=== PATIENT | male | born 1950 | race Caucasian/White ===

== ENCOUNTER 2016-10-21 12:06 | Inpatient (IN) | payer OTHER, MEDICAID ==
[~2016-10-21] VITALS: Ht 193 cm; Wt 97.1 kg
[~2016-10-21 12:06] MED LIST: ASPIR 8181 MG PO; CLINDAMYCIN HC300 MG PO; DUONEB3 ML NEB; LAC PO; LEVAQUIN750 MG PO; MUCINEX600 MG PO; PROVENTIL0.09 MG/A1 INH; SYMBICORT1 AE3 INH; TETRACYCLINE250 MG PO
[2016-10-21 13:15] LABS: BASOPHIL % 0.6 % (0-2); PLATELET COUNT 303 x10^3mcL (130-400)
[2016-10-21 13:22] LABS: RED CELL DISTRIBUTION WIDTH 16.1 % (11.5-14.5)
[2016-10-21 13:24] LABS: CALCIUM 8.1 mg/dL (8.5-10.1); CARBON DIOXIDE 29.6 mmol/L (21-32); CHLORIDE SERUM 107 mmol/L (98-107); GFR1 > 60 mL/min; GLUCOSE SERUM 85 mg/dL (74-106); POTASSIUM SERUM 3.8 mmol/L (3.5-5.1); SODIUM SERUM 144 mmol/L (136-145)
[2016-10-21] MEDS ORDERED: ZITHROMAX Z-PA250 MG PO (13:29)
[2016-10-21] MEDS ORDERED: POTASSIUM CHLO10 MEQ (13:30)
[2016-10-21] MEDS ORDERED: NITROSTAT0.4 MG SL (13:30)
[2016-10-21] MEDS ORDERED: L-LYSINE (13:30)
[2016-10-21] MEDS ORDERED: CHOLESTEROL (13:30)
[2016-10-21 13:38] LABS: ALBUMIN 3.4 g/dL (3.4-5.0); ALKALINE PHOSPHATASE 102 U/L (46-116); ALT/SGPT 36 U/L (16-63); AST/SGOT 27 U/L (15-37); BILIRUBIN TOTAL 0.61 mg/dL (0.20-1.00)
[2016-10-21 13:40] LABS: CK-MB 3.3 ng/mL (0-3.6)
[2016-10-21 14:12] LABS: UA SPECIFIC GRAVITY 1.025 (1.005-1.035); microscopic required? YES; urine erythrocyte NEGATIVE (NEGATIVE)
[2016-10-21 16:06] VITALS: BP 189/84
[2016-10-21 16:11] LABS: MAGNESIUM 1.8 mg/dL (1.8-2.4); PHOSPHOROUS 3.5 mg/dL (2.5-4.9)
[2016-10-21 16:20] LABS: FREE THYROXINE INDEX 2.5 ug/dL (1.4-4.5); T4(THYROXINE) 8.8 ug/dL (4.7-13.3)
[2016-10-21 16:30] LABS: CHOLESTEROL/HDL RATIO 1.9
[2016-10-21 16:49] VITALS: Ht 193 cm; Wt 97.1 kg
[2016-10-21 17:06] VITALS: BP 189/84
[2016-10-21 18:15] VITALS: BP 163/77
[2016-10-21 18:40] LABS: T3 TOTAL 1.12 ng/mL
[2016-10-21] MEDS ORDERED: HYDROCHLOROTHIA25 MG PO (20:22)
[2016-10-21 21:49] VITALS: BP 178/63
[2016-10-22 06:27] VITALS: BP 137/70
[2016-10-22 09:21] VITALS: BP 150/70
[2016-10-22 14:41] VITALS: BP 111/43
[2016-10-22 16:29] VITALS: BP 138/67
[2016-10-22 16:35] LABS: BASOPHIL % 0.5 % (0-2); PLATELET COUNT 261 x10^3mcL (130-400)
[2016-10-22 16:36] LABS: RED CELL DISTRIBUTION WIDTH 16.1 % (11.5-14.5)
[2016-10-22 16:46] LABS: CALCIUM 7.9 mg/dL (8.5-10.1); CARBON DIOXIDE 28.9 mmol/L (21-32); CHLORIDE SERUM 106 mmol/L (98-107); CREATININE SERUM 1.1 mg/dL (0.7-1.3); GFR1 > 60 mL/min; GLUCOSE SERUM 113 mg/dL (74-106); POTASSIUM SERUM 4.3 mmol/L (3.5-5.1); SODIUM SERUM 143 mmol/L (136-145)
[2016-10-22 21:03] VITALS: BP 140/83
[2016-10-23 05:26] VITALS: BP 117/64
[2016-10-23 06:40] LABS: BASOPHIL % 0.6 % (0-2); PLATELET COUNT 265 x10^3mcL (130-400)
[2016-10-23 06:44] LABS: RED CELL DISTRIBUTION WIDTH 16.2 % (11.5-14.5)
[2016-10-23 07:01] LABS: CALCIUM 7.9 mg/dL (8.5-10.1); CARBON DIOXIDE 31.7 mmol/L (21-32); CHLORIDE SERUM 106 mmol/L (98-107); CREATININE SERUM 1.1 mg/dL (0.7-1.3); GFR1 > 60 mL/min; GLUCOSE SERUM 85 mg/dL (74-106); MAGNESIUM 1.8 mg/dL (1.8-2.4); POTASSIUM SERUM 4.4 mmol/L (3.5-5.1); SODIUM SERUM 145 mmol/L (136-145)
[2016-10-23 08:57] LABS: AMPHETAMINE QUAL UR NONE DETECTED (NEG <=1000)
[2016-10-23 09:14] VITALS: BP 117/73
[2016-10-23] MEDS ORDERED: TEN25 PO (14:47)
[2016-10-23] MEDS ORDERED: ZES10 PO (14:48)
[2016-10-23] MEDS ORDERED: NEU300 PO (14:52)
[2016-10-23] MEDS ORDERED: LAC PO (14:53)
[2016-10-23] MEDS ORDERED: LEVOFLOXACIN500 M1 PO (14:56)
[2016-10-23 15:43] VITALS: BP 117/73
[2016-10-23 17:35] VITALS: BP 140/71
== END 2016-10-23 18:30 | disposition home or self-care (01) | DRG 602 ==
LOC: ED 12:06 → DU 14:54 → MU 14:54 → DU 14:54 → MU 10-23 10:02
PROVIDERS: Emergency Medicine; Student in an Organized Health Care Education/Training Program; ADMIT Family Medicine
DX: L03.116 Cellulitis of left lower limb (principal); N17.0 Acute kidney failure with tubular necrosis; I42.9 Cardiomyopathy, unspecified; I87.8 Other specified disorders of veins; I16.0 Hypertensive urgency; R07.9 Chest pain, unspecified; I25.10 Atherosclerotic heart disease of native coronary artery without angina pectoris; J44.9 Chronic obstructive pulmonary disease, unspecified; D64.9 Anemia, unspecified; E78.5 Hyperlipidemia, unspecified; F17.290 Nicotine dependence, other tobacco product, uncomplicated; Z68.26 Body mass index [BMI] 26.0-26.9, adult; Z95.5 Presence of coronary angioplasty implant and graft; Z79.82 Long term (current) use of aspirin
CPT/HCPCS: 83880; 84439; J1644; J1956; J3490; J7030; J7050; J7620; J7633; Q0092

== ENCOUNTER 2017-10-25 13:22 | Inpatient (IN) | payer OTHER, MEDICAID ==
[~2017-10-25] VITALS: Ht 193 cm; Wt 90.4 kg
[~2017-10-25 13:22] MED LIST changes: +CHOLESTEROL; +HYDROCHLOROTHIA25 MG PO; +L-LYSINE; +LEVOFLOXACIN500 M1 PO; +NEU300 PO; +NITROSTAT0.4 MG SL; +POTASSIUM CHLO10 MEQ; +TEN25 PO; +ZES10 PO; +ZITHROMAX Z-PA250 MG PO
[2017-10-25 13:24] VITALS: Ht 193 cm; Wt 90.4 kg
[2017-10-25 14:23] LABS: BASOPHIL % 0.3 % (0-2)
[2017-10-25 14:26] LABS: PLATELET COUNT 478 x10^3mcL (130-400)
[2017-10-25 14:34] LABS: CALCIUM 9.4 mg/dL (8.5-10.1); CARBON DIOXIDE 32.1 mmol/L (21-32); CREATININE SERUM 1.6 mg/dL (0.7-1.3); POTASSIUM SERUM 3.6 mmol/L (3.5-5.1)
[2017-10-25 14:39] LABS: BILIRUBIN TOTAL 0.55 mg/dL (0.20-1.00); TOTAL PROTEIN, SERUM 7.8 g/dL (6.4-8.2)
[2017-10-25 14:40] LABS: ALBUMIN 3.2 g/dL (3.4-5.0)
[2017-10-25 16:00] VITALS: BP 108/61
[2017-10-25 17:00] VITALS: BP 108/61
[2017-10-25 21:09] VITALS: BP 107/65
[2017-10-26 05:54] VITALS: BP 96/63
[2017-10-26 09:33] LABS: CALCIUM 8.9 mg/dL (8.5-10.1); CARBON DIOXIDE 31.1 mmol/L (21-32); CREATININE SERUM 1.7 mg/dL (0.7-1.3); POTASSIUM SERUM 4.5 mmol/L (3.5-5.1)
[2017-10-26 09:44] VITALS: BP 112/47
[2017-10-26 10:15] LABS: UA SPECIFIC GRAVITY >=1.030 (1.005-1.035); microscopic required? YES; urine erythrocyte 3+ (NEGATIVE)
[2017-10-26 11:04] LABS: BASOPHIL % 0.2 % (0-2); PLATELET COUNT 438 x10^3mcL (130-400); RED CELL DISTRIBUTION WIDTH 14.2 % (11.5-14.5)
[2017-10-26 13:22] VITALS: BP 118/58
[2017-10-26 17:36] VITALS: BP 126/57
== END 2017-10-26 20:49 | disposition home or self-care (01) | DRG 181 ==
LOC: ED 13:22 → DU 14:32 → EDBEDREQ 14:56 → DU 15:45
PROVIDERS: Emergency Medicine; Internal Medicine Pulmonary Disease
DX: D49.1 Neoplasm of unspecified behavior of respiratory system (principal); J44.1 Chronic obstructive pulmonary disease with (acute) exacerbation; I10 Essential (primary) hypertension; E78.5 Hyperlipidemia, unspecified; F17.210 Nicotine dependence, cigarettes, uncomplicated
CPT/HCPCS: 83880; 94150; J0456; J1170; J1956; J2920; J2930; J7030; J7613; J7620; J7626; J7644; Q0092; Q9967

== ENCOUNTER 2017-11-03 11:22 | Emergency (ER) | payer OTHER, MEDICAID ==
[~2017-11-03] VITALS: Ht 193 cm; Wt 90.8 kg
[2017-11-03 11:25] VITALS: Ht 193 cm; Wt 90.8 kg
[2017-11-03 17:04] VITALS: BP 129/68
== END 2017-11-03 17:05 | disposition home or self-care (01) ==
LOC: ED 11:22
DX: J44.1 Chronic obstructive pulmonary disease with (acute) exacerbation (principal); F17.210 Nicotine dependence, cigarettes, uncomplicated; R91.8 Other nonspecific abnormal finding of lung field; E78.00 Pure hypercholesterolemia, unspecified; Z88.0 Allergy status to penicillin; Z88.5 Allergy status to narcotic agent
CPT/HCPCS: J7512; J7613; J7644; Q0092

== ENCOUNTER 2017-11-13 23:22 | Inpatient (IN) | payer OTHER, MEDICAID ==
[~2017-11-13] VITALS: Ht 190.5 cm; Wt 83.0 kg
[2017-11-14 00:16] LABS: BASOPHIL % 0.3 % (0-2); PLATELET COUNT 273 x10^3mcL (130-400)
[2017-11-14 00:19] LABS: CALCIUM 9.1 mg/dL (8.5-10.1); CARBON DIOXIDE 31.2 mmol/L (21-32); CREATININE SERUM 1.5 mg/dL (0.7-1.3); POTASSIUM SERUM 4.3 mmol/L (3.5-5.1)
[2017-11-14 00:23] LABS: RED CELL DISTRIBUTION WIDTH 15.7 % (11.5-14.5)
[2017-11-14 00:35] LABS: ALBUMIN 3.5 g/dL (3.4-5.0); BILIRUBIN TOTAL 1.4 mg/dL (0.20-1.00); TOTAL PROTEIN, SERUM 7.4 g/dL (6.4-8.2)
[2017-11-14 08:13] VITALS: BP 105/60
[2017-11-14 08:20] VITALS: BP 105/60
[2017-11-14 12:26] VITALS: BP 122/68
[2017-11-14 12:34] VITALS: Ht 190.5 cm; Wt 83.0 kg
[2017-11-14] MEDS ORDERED: SYMBICORT1 AE3 INH (12:59)
[2017-11-14] MEDS ORDERED: ATENOLOL25 MG PO (13:00)
[2017-11-14] MEDS ORDERED: PRINIVIL20 MG PO (13:00)
[2017-11-14] MEDS ORDERED: NITROSTAT0.4 MG SL (13:00)
[2017-11-14] MEDS ORDERED: TESSALON PERLE100 MG PO (13:00)
[2017-11-14] MEDS ORDERED: PROAIR HFA8.5 GM INH (13:01)
[2017-11-14] MEDS ORDERED: HYD25 PO (13:01)
[2017-11-14] MEDS ORDERED: ATROVENT H0.017 MG/1 IH (13:02)
[2017-11-14] MEDS ORDERED: ULTRAM50 MG PO (13:03)
[2017-11-14 16:39] VITALS: BP 120/65
[2017-11-14 20:29] VITALS: BP 128/66
[2017-11-15 04:11] LABS: UA SPECIFIC GRAVITY >=1.030 (1.005-1.035); microscopic required? YES; urine erythrocyte 3+ (NEGATIVE)
[2017-11-15 05:31] VITALS: BP 94/58
[2017-11-15 07:25] LABS: PLATELET COUNT 251 x10^3mcL (130-400)
[2017-11-15 07:27] LABS: CREATININE SERUM 1.5 mg/dL (0.7-1.3); POTASSIUM SERUM 4.2 mmol/L (3.5-5.1)
[2017-11-15 07:42] LABS: RED CELL DISTRIBUTION WIDTH 15.5 % (11.5-14.5)
[2017-11-15 09:50] VITALS: BP 104/54
[2017-11-15 10:45] LABS: BAND NEUTROPHIL 3 % (0-10); BASOPHIL 0 % (0-2); MONOCYTE 4 % (0-7); SEGMENTED NEUTROPHILS 90 % (37-75)
[2017-11-15 10:49] LABS: rbc morphology (normal/abnorm) ABNORMAL (NORMAL)
[2017-11-15 13:52] VITALS: BP 110/54
[2017-11-15 16:52] VITALS: BP 100/62
[2017-11-15 17:43] VITALS: BP 100/62
[2017-11-15 20:52] VITALS: BP 133/67
== END 2017-11-15 21:56 | disposition home or self-care (01) | DRG 192 ==
LOC: ED 23:22 → DU 11-14 01:54 → EDBEDREQ 11-14 01:56 → DU 11-14 07:29
PROVIDERS: Emergency Medicine; Internal Medicine Pulmonary Disease
DX: J44.1 Chronic obstructive pulmonary disease with (acute) exacerbation (principal); I12.9 Hypertensive chronic kidney disease with stage 1 through stage 4 chronic kidney disease, or unspecified chronic kidney disease; N18.9 Chronic kidney disease, unspecified; R13.10 Dysphagia, unspecified; G47.33 Obstructive sleep apnea (adult) (pediatric); I25.10 Atherosclerotic heart disease of native coronary artery without angina pectoris; F17.210 Nicotine dependence, cigarettes, uncomplicated; Z99.81 Dependence on supplemental oxygen; Z95.5 Presence of coronary angioplasty implant and graft
CPT/HCPCS: 36600; 83880; 92610; J1644; J1956; J2920; J2930; J3475; J7040; J7613; J7620; J7626; J7644; Q0092